=== PATIENT | male | born 1960 | race Caucasian/White ===

== ENCOUNTER 2020-12-26 07:22 | Day surgery (SDC) | payer BC ==
[2020-12-25 11:04] VITALS: BMI 32.3
[2020-12-26] MEDS ORDERED: Ferric Subsulfate (ASTRINGYN) 8 GM VIAL ONE (09:57)
[2020-12-26] MEDS ORDERED: EPINEPHrine 1 MG/ML AMP ONE (09:57)
[2020-12-26] MEDS ORDERED: Fentanyl 100 MCG/2 ML VIAL ONE ×3 (10:07→12:15)
[2020-12-26] MEDS ORDERED: Lidocaine 1% PF 5 ML VIAL ONE (10:30)
[2020-12-26] MEDS ORDERED: Rocuronium Bromide 10 MG/ML (10ML VIAL) ONE (10:30)
[2020-12-26] MEDS ORDERED: Ondansetron PF 4 MG/2 ML Vial ONE (10:30)
[2020-12-26] MEDS ORDERED: PROPOFOL 200 MG/20 ML VIAL ONE (10:30)
[2020-12-26] MEDS ORDERED: Dexamethasone 20 MG/5 ML VIAL ONE (10:30)
[2020-12-26] MEDS ORDERED: ePHEDrine 50 MG/ML VIAL ONE (10:30)
[2020-12-26] MEDS ORDERED: Hydrocodone-Acetamin 15 ML UDCUP ONE (13:32)
== END 2020-12-26 14:15 | disposition home or self-care (01) ==
LOC: SDC 07:22
PROVIDERS: ATTEND Specialist
PROC: 0CTPXZZ Resection of Tonsils, External Approach (ICD-10-PCS; principal; 2020-12-26)
PROC: 0CBNXZZ Excision of Uvula, External Approach (ICD-10-PCS; principal; 2020-12-26)
DX: C11.1 Malignant neoplasm of posterior wall of nasopharynx (principal); C44.42 Squamous cell carcinoma of skin of scalp and neck; J35.8 Other chronic diseases of tonsils and adenoids; G47.30 Sleep apnea, unspecified; Z79.899 Other long term (current) drug therapy
CPT/HCPCS: 70491; 82565; 88304; 88309; 88341; 88342; 93005; 93010; J0171; J1100; J2405; J2704; J3010; J3490; Q9967